=== PATIENT | female | born 1970 | race Caucasian/White ===

== ENCOUNTER 2019-12-12 00:32 | Day surgery (SDC) | payer OTHER, SELFPAY ==
[2019-12-07 13:07] VITALS: BMI 31.8
[2019-12-12 12:20] VITALS: BP 135/92; PULSE 104; RESP 20; TEMP 36.8; O2SAT 97; BMI 31.0
[2019-12-12] MEDS: LACTATED RINGERS 1,000 ML 150 ML IV CONT (12:47)
--- NOTE | 2019-12-12 12:58 | WPDANESEPPF ---
Anes - Initial Pre Proc Eval Procedure: Operation Date: 12/12/19 13:00 Proposed Procedures p Colonoscopy - Brandt Hernandez MD Date/Time: 12/12/19 12:58 Surgeon: Brandt Hernandez MD Pre Op Diagnosis: Diarrhea Patient Data Age: 49 Gender: F Height: 5 ft 4 in Weight: 82 kg Last Vital Signs Temp 98.2 F 12/12/19 12:20 Pulse 104 H 12/12/19 12:20 Resp 20 12/12/19 12:20 BP 135/92 H 12/12/19 12:20 Pulse Ox 97 12/12/19 12:20 Allergies Allergy/AdvReac Type Severity Reaction Status Date / Time iodine Allergy Severe Hives Verified 12/12/19 12:33 amoxicillin Allergy Unknown Nausea Verified 12/12/19 12:33 atorvastatin Allergy Unknown myalgias Verified 12/12/19 12:33 codeine Allergy Unknown Unknown Verified 12/12/19 12:33 erythromycin base Allergy Unknown Unknown Verified 12/12/19 12:33 fentanyl Allergy Unknown Unknown Verified 12/12/19 12:33 hydrocodone Allergy Unknown Unknown Verified 12/12/19 12:33 ketorolac Allergy Unknown Unknown Verified 12/12/19 12:33 Macrolide Antibiotics Allergy Unknown Unknown Verified 12/12/19 12:33 meperidine Allergy Unknown Unknown Verified 12/12/19 12:33 morphine Allergy Unknown Unknown Verified 12/12/19 12:33 oxycodone Allergy Unknown Hives Verified 12/12/19 12:33 Sulfa (Sulfonamide Allergy Unknown Unknown Verified 12/12/19 12:33 Antibiotics) tramadol Allergy Unknown Skin Verified 12/12/19 12:33 Reaction Home Medications Medication Instructions Recorded Confirmed Type albuterol sulfate 90 mcg/actuation 2 inhalation INHALATION Q4-6H gm 08/23/19 12/07/19 History aerosol inhaler aspirin 81 mg tablet,delayed 81 mg PO DAILY 08/23/19 12/12/19 History release fexofenadine-pseudoephedrine ER 1 tablet PO DAILY 08/23/19 12/07/19 History 180 mg-240 mg tablet,ext.release 24 hr fluticasone propionate 50 1 spray NASAL BID 08/23/19 12/12/19 History mcg/actuation nasal spray,suspension ibuprofen 800 mg tablet 800 mg PO TID 08/23/19 12/07/19 History levothyroxine 88 mcg tablet 88 mcg PO DAILY 08/23/19 12/12/19 History mometasone-formoterol HFA 200 2 puff INHALATION BID 08/23/19 12/12/19 History mcg-5 mcg/actuation aerosol inhaler montelukast 10 mg tablet 10 mg PO DAILY 08/23/19 12/12/19 History multivitamin 1 cap PO DAILY 08/23/19 12/12/19 History sumatriptan succinate 100 mg tablet 100 mg PO ONCE PRN 08/23/19 12/07/19 History tramadol 100 mg capsule 50 mg PO PRN PRN 08/23/19 12/12/19 History 24h,extended release(25-75) umeclidinium 62.5 mcg/actuation 1 inhalation INHALATION BID each 08/23/19 12/07/19 History blister powder for inhalation diltiazem HCl 240 mg 240 mg PO DAILY #30 cap 10/06/19 12/12/19 Rx capsule,extended release 24 hr fluticasone 100 mcg-salmeterol 50 1 puff INHALATION DAILY 10/17/19 12/07/19 History mcg/dose blistr powdr for inhalation conjugated estrogens 0.3 mg tablet 0.3 mg PO DAILY #90 tablet 10/24/19 12/07/19 Rx triamterene 37.5 1 cap PO DAILY #90 cap 12/05/19 12/12/19 Rx mg-hydrochlorothiazide 25 mg capsule cetirizine [Zyrtec] 10 mg PO DAILY 12/07/19 12/12/19 History omega-3 fatty acids [Fish Oil 1,000 mg PO BID 12/07/19 12/07/19 History Concentrate] omeprazole 40 mg PO DAILY 12/07/19 12/12/19 History mometasone-formoterol [Dulera] 2 puff INHALATION Q12H 12/12/19 12/12/19 History Patient hx anesthesia problems: none Family hx anesthesia problems: none PMFSH Past Medical History Medical History (Updated 12/12/19 @ 12:58 by Francisco Lechuga MD) Angioedema Benign essential HTN C. difficile colitis (~02/2019) CVID (common variable immunodeficiency) Diarrhea History of insect sting allergy Hypothyroid Multiple nasal polyps Severe persistent asthma, uncomplicated Vocal cord dysfunction Surgical History Surgical History (Updated 11/06/19 @ 13:27 by Brandt Hernandez MD) History of cholecystectomy Social History Social History (Reviewed 10/17/19 @ 10:32 b
--- NOTE | 2019-12-12 13:59 | PM.HPGS ---
History of Present Illness History of Present Illness Consent: Risks, benefits, and alternatives have been discussed and questions answered. Patient agrees to proceed with procedure. Chief complaint: Diarrhea Narrative: María Elena Bejarano is a 49 year old female here for chronic diarrhea. Review of Systems Constitutional: Constitutional: Denies headache(s) and Denies weakness Eyes: Eyes: Denies blurry vision ENT: Reports Normal hearing present, Denies headache(s) and Denies neck pain Cardiovascular: Cardiovascular: Denies chest pain and Denies dyspnea Respiratory: Respiratory: Denies dyspnea Gastrointestinal: Gastrointestinal: Reports no additional gastrointestinal complaints Genitourinary: Genitourinary: Denies dysuria Musculoskeletal: Musculoskeletal: Denies neck pain Integumentary/Breasts: Skin/Breast: Denies dry skin Neurologic: Reports Normal hearing present, Denies headache(s) and Denies weakness Psychiatric: Psychiatric: Denies anxiety Endocrine: Endocrine: Denies change in body appearance Hematologic/Lymphatic: Hematologic/Lymphatic: Denies easy bleeding Allergic/Immunologic: Allergic/Immunologic: Denies urticaria PMF Past Medical History Medical History (Updated 12/12/19 @ 14:00 by Brandt Hernandez MD) Angioedema Benign essential HTN C. difficile colitis (~02/2019) CVID (common variable immunodeficiency) Diarrhea History of insect sting allergy Hypothyroid Multiple nasal polyps Severe persistent asthma, uncomplicated Vocal cord dysfunction Surgical History Surgical History (Updated 11/06/19 @ 13:27 by Brandt Hernandez MD) History of cholecystectomy Social History Social History Smoking status: Never smoker Alcohol intake: current Meds Home Medications and Allergies Home Medications Medication Instructions Recorded Confirmed Type albuterol sulfate 90 mcg/actuation 2 inhalation INHALATION Q4-6H gm 08/23/19 12/07/19 History aerosol inhaler aspirin 81 mg tablet,delayed 81 mg PO DAILY 08/23/19 12/12/19 History release fexofenadine-pseudoephedrine ER 1 tablet PO DAILY 08/23/19 12/07/19 History 180 mg-240 mg tablet,ext.release 24 hr fluticasone propionate 50 1 spray NASAL BID 08/23/19 12/12/19 History mcg/actuation nasal spray,suspension ibuprofen 800 mg tablet 800 mg PO TID 08/23/19 12/07/19 History levothyroxine 88 mcg tablet 88 mcg PO DAILY 08/23/19 12/12/19 History mometasone-formoterol HFA 200 2 puff INHALATION BID 08/23/19 12/12/19 History mcg-5 mcg/actuation aerosol inhaler montelukast 10 mg tablet 10 mg PO DAILY 08/23/19 12/12/19 History multivitamin 1 cap PO DAILY 08/23/19 12/12/19 History sumatriptan succinate 100 mg tablet 100 mg PO ONCE PRN 08/23/19 12/07/19 History tramadol 100 mg capsule 50 mg PO PRN PRN 08/23/19 12/12/19 History 24h,extended release(25-75) umeclidinium 62.5 mcg/actuation 1 inhalation INHALATION BID each 08/23/19 12/07/19 History blister powder for inhalation diltiazem HCl 240 mg 240 mg PO DAILY #30 cap 10/06/19 12/12/19 Rx capsule,extended release 24 hr fluticasone 100 mcg-salmeterol 50 1 puff INHALATION DAILY 10/17/19 12/07/19 History mcg/dose blistr powdr for inhalation conjugated estrogens 0.3 mg tablet 0.3 mg PO DAILY #90 tablet 10/24/19 12/07/19 Rx triamterene 37.5 1 cap PO DAILY #90 cap 12/05/19 12/12/19 Rx mg-hydrochlorothiazide 25 mg capsule cetirizine [Zyrtec] 10 mg PO DAILY 12/07/19 12/12/19 History omega-3 fatty acids [Fish Oil 1,000 mg PO BID 12/07/19 12/07/19 History Concentrate] omeprazole 40 mg PO DAILY 12/07/19 12/12/19 History mometasone-formoterol [Dulera] 2 puff INHALATION Q12H 12/12/19 12/12/19 History Allergies Allergy/AdvReac Type Severity Reaction Status Date / Time iodine Allergy Severe Hives Verified 12/12/19 12:33 amoxicillin Allergy Unknown Nausea Verified 12/12/19 12:33 atorvasta
[2019-12-12 14:17] VITALS: BP 111/78; PULSE 86; RESP 16; O2SAT 97
[2019-12-12 14:27] VITALS: BP 113/82; PULSE 88; RESP 16; O2SAT 98
[2019-12-12 14:32] VITALS: BP 123/74; PULSE 90; RESP 14; O2SAT 97
== END 2019-12-12 14:55 | disposition home or self-care (01) ==
PROVIDERS: PCP Family Medicine; Visit Provider Internal Medicine Gastroenterology
PROC: 0DJD8ZZ Inspection of Lower Intestinal Tract, Via Natural or Artificial Opening Endoscopic (ICD-10-PCS; CPT 45378; principal; 2019-12-12 13:00)
DX: R19.7 Diarrhea, unspecified (principal); K64.8 Other hemorrhoids; I10 Essential (primary) hypertension; D83.9 Common variable immunodeficiency, unspecified; E03.9 Hypothyroidism, unspecified; J45.50 Severe persistent asthma, uncomplicated; Z79.82 Long term (current) use of aspirin
CPT/HCPCS: 45380; 88305; J2704; J7120

== ENCOUNTER 2020-05-20 09:34 | Outpatient (CLI) | payer OTHER, SELFPAY ==
--- NOTE | 2020-05-27 10:30 | SLEEP_ITS ---
Home Sleep Test DATE OF STUDY: 05/20/2020 ORDERING PHYSICIAN: Tayla Tineo MD. REASON FOR THE STUDY: Hypersomnia. HISTORY: This patient is a 50-year-old female, 5 feet 4 inches tall, 170 pounds with a body mass index of 29.1. She sleeps poorly at night, very lightly, few hours, only occasionally bothered by snoring. She frequently awakens from sleep feeling short of breath, frequently awakens from sleep with heartburn, belching, or coughing. She never snores loudly enough that others complain about it. Her mother and daughters have similar problems. The patient has a difficult time falling asleep, she wakes up during the night, she wakes up earlier in the morning than she wants to wake and she has a difficult time waking up. She has excessive daytime sleepiness. She has tried melatonin and trazodone without help. She frequently has trouble sleeping if she has a cold. She does not awake at night gasping for breath. She frequently has breathing problems at night due to asthma. She rarely sweats excessively at night. She occasionally notices her heart pounding or beating irregularly at night, which is due to her mitral valve prolapse. She does not fall asleep during the day, does not fall asleep involuntarily or while driving. She does not experience loss of muscle tone with strong emotion. She does not have daytime difficulties due to excessive sleepiness. She is a medical office worker. She does not feel paralyzed on waking or falling asleep. She does not have vivid dreamlike scenes upon awakening or falling asleep and is not afraid to go to sleep. She rarely has nightmares. She occasionally remembers her dreams. She rarely has racing thoughts. She does not feel sad or depressed. She occasionally has anxiety and muscular tension. She does not notice parts of her body jerking. She does not kick at night or have crawly achy feelings in her legs at night. She is not awakened with leg pain during the night. She occasionally has morning jaw pain, frequently grinds her teeth during sleep, frequently is bothered by pain during the day, occasionally is awakened by pain at night, frequently wakes up feeling stiff in the morning with sore achy muscles and pain in her neck and spine. She has headaches, palpitations, bowel disturbances, nightmares, fatigue, insomnia, and takes antacids regularly. Normal bedtime is 10 p.m. to 11 p.m., falling asleep sometimes quickly and sometimes taking longer. She typically awakens at night twice and will use the bathroom. She will try to go back to sleep, but this is not always easy. She awakens between 5 and 7 a.m. Weekend schedule is about the same. She does not take naps in the evening or afternoon. Most of the time she feels adequate in the morning, but she is not always refreshed. She feels better in the afternoons than the mornings. MEDICAL COMORBIDITIES: Allergic asthma, lung nodules, common variable immune deficiency, hypothyroidism, gastroesophageal reflux disease, hypertension, on diltiazem and losartan. MEDICATIONS: 1. Albuterol rescue inhaler q.4 hours p.r.n. shortness of breath. 2. Aspirin 81 mg a day. 3. Conjugated estrogen 0.3 mg daily. 4. Fexofenadine/pseudoephedrine ER 180 mg/240 mg 1 daily. 5. Fluticasone 50 mcg 1 spray each nostril b.i.d. 6. Ibuprofen 800 mg t.i.d. 7. Levothyroxine 88 mcg daily. 8. Methocarbamol 500 mg 3 times a day. 9. Mometasone/formoterol 200/5 mcg, 2 puffs twice a day. 10. Montelukast 10 mg a day. 11. Multivitamin 1 capsule daily. 12. Omeprazole 40 mg a day. 13. Ranitidine 300 mg daily. 14. Sumatriptan succinate 100 mg once daily as needed. 15. Tramadol 100 mg daily extended release. 16. Umeclidinium 62.5 mcg 1 puff daily. 17. Triamterene/hydrochlorothiazide 37.5/25 mg, 1 caps
== END 2020-05-20 09:35 | disposition home or self-care (01) ==
LOC: ANHCSM 09:40
PROVIDERS: PCP Family Medicine; Visit Provider Internal Medicine Critical Care Medicine
DX: G47.10 Hypersomnia, unspecified (principal); G47.33 Obstructive sleep apnea (adult) (pediatric)
CPT/HCPCS: 95806

== ENCOUNTER 2020-07-27 10:53 | Outpatient (CLI) | payer OTHER, SELFPAY ==
--- NOTE | ~2020-07-27 | CT_ITS ---
EXAMINATION: CT abdomen w con DATE: 07/27/2020 11:54 INDICATION: Celiac artery aneurysm. Lung nodule. TECHNIQUE: Computed tomography (CT) of the abdomen and pelvis was performed with 100 cc Omnipaque 350 intravenous contrast. Automated exposure control and iterative reconstruction technique were employe d. Exam dose: 289.58 mGy-cm total exam DLP. COMPARISON: 02/16/2019 CT abdomen pelvis FINDINGS: There is a calcified pulmonary granuloma in the anterior basal segment of the left lower lo be. The lung bases are clear of infiltrate or consolidation. Normal heart size. No pericardial or pleural effusion. No hepatic, splenic, pancreatic, adrenal space-occupying mass lesion. Occasional small renal cysts. T he kidneys otherwise are unremarkable. No apparent renal calculus or hydronephrosis. Normal caliber of the abdominal aorta. 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 No intraperitoneal or retroperitoneal mass lesion or adenopathy or ascites. No evidence of geoff l obstruction. No intraperitoneal free air. Small fat-containing umbilical hernia. IMPRESSION: No significant change since 02/16/2019 Reviewed, dictated and finalized at [facility]. Reviewed, dictated and finalized at [facility].
--- NOTE | ~2020-07-27 | CT_ITS ---
EXAMINATION: CT chest wo con DATE: 07/27/2020 11:54 INDICATION: Shortness of breath. Left upper quadrant pain for 2 years. TECHNIQUE: Computed tomography (CT) of the chest was performed without intravenous contrast. Automate d exposure control and iterative reconstruction technique were employed. Exam dose: 187.35 mGy-cm to sue exam DLP. COMPARISON: 05/19/2019 CT chest FINDINGS: Previously reported 5 mm left upper lobe nodule is diminished in size since 05/29/2019, cons istent with benign process. Stable 5 mm peripheral left lower lobe nodule (series 4 image 48) since 05/29/2019 Anterior basilar segment left lower lobe calcified pulmonary granuloma. No pulmonary infiltrate or consolidation or interval pulmonary mass lesion is noted. No hilar or mediastinal mass lesion or lymphadenopathy. Trace pericardial fluid. Heart size is within normal range. Status post cholecystectomy. Included skeletal structures are unremarkable. IMPRESSION: No significant change since 05/22/2019; stable or diminished size of left pulmonary nodul es, consistent with benign process Reviewed, dictated and finalized at [facility]. Reviewed, dictated and finalized at [facility]. IMPRESSION: No significant change since 05/22/2019; stable or diminished size o f left pulmonary nodules, consistent with benign process
== END 2020-07-27 10:54 | disposition home or self-care (01) ==
PROVIDERS: PCP Family Medicine; Referring Provider Internal Medicine Cardiovascular Disease; Visit Provider Nurse Practitioner Family
DX: J98.4 Other disorders of lung (principal); I72.8 Aneurysm of other specified arteries
CPT/HCPCS: 71250; 74160; Q9967

== ENCOUNTER 2020-10-21 08:19 | Outpatient (CLI) | payer OTHER, SELFPAY ==
--- NOTE | ~2020-10-21 | MM_ITS ---
EXAMINATION: MM screening galileo BI w alfred HISTORY: Screening TECHNIQUE: Craniocaudal and mediolateral oblique 3-D tomosynthesis images were obtained and synthetic 2-D images were generated. CAD analysis was submitted and interpreted. COMPARISON: Comparison to multiple prior studies sequentially, with oldest reviewed study dated 12/31. BREAST PARENCHYMAL COMPOSITION: There are scattered areas of fibroglandular density. FINDINGS: There is developing asymmetry in the upper outer quadrant of the right breast. The left figueroa ast is stable without evidence for malignancy. IMPRESSION: 1. Developing right breast asymmetry. 2. Additional mammographic views and possible breast ultrasound are recommended. BI-RADS Category 0: Incomplete: Needs additional imaging evaluation. Reviewed, dictated and finalized at [facility]. N RESOURCE ANALYST IMPRESSION: 1. Developing right breast asymmetry. 2. Additional mammographic views and possible breast ultrasound are recommended . BI-RADS Category 0: Incomplete: Needs additional imaging evaluation.
== END 2020-10-21 08:20 | disposition home or self-care (01) ==
LOC: ANHIMG 08:22
PROVIDERS: PCP Family Medicine; Visit Provider Family Medicine
DX: Z12.31 Encounter for screening mammogram for malignant neoplasm of breast (principal); R92.8 Other abnormal and inconclusive findings on diagnostic imaging of breast
CPT/HCPCS: 77063; 77067

== ENCOUNTER 2020-11-15 12:50 | Outpatient (CLI) | payer OTHER, SELFPAY ==
--- NOTE | ~2020-11-15 | MMUS_ITS ---
EXAMINATION: MM diagnostic galileo RT w alfred, US breast RT limited HISTORY: Focal asymmetry of the right breast on screening mammogram TECHNIQUE: Additional 3-D tomosynthesis images of the right breast were performed and synthetic 2-D i mages were generated. CAD analysis was submitted and interpreted. High resolution limited right breas t ultrasound was performed. COMPARISON: 10/21/2020, 10/06/2019, 05/25/2019, 02/21/2015 FINDINGS: MAMMOGRAPHIC FINDINGS: Focal asymmetry in the upper outer quadrant of the posterior third of the right breast at the 11:00 l ocation has an appearance similar to prior mammograms with spot compression. There is no suspicious m ass, calcification, or architectural distortion. ULTRASOUND: There is no evidence of focal abnormal solid or cystic lesion in the vicinity of the mammographic fin ding in question. IMPRESSION: 1. No mammographic or sonographic evidence of malignancy. 2. Recommend routine screening mammography in one year. BI-RADS Category 2: Benign finding(s). Reviewed, dictated and finalized at [facility]. AGE BATTERY INSPECTOR IMPRESSION: 1. No mammographic or sonographic evidence of malignancy. 2. Recommend routine screening mammography in one year. BI-RADS Category 2: Benign finding(s).
== END 2020-11-15 12:51 | disposition home or self-care (01) ==
LOC: ANHIMG 12:51
PROVIDERS: PCP Family Medicine; Visit Provider Family Medicine
DX: R92.8 Other abnormal and inconclusive findings on diagnostic imaging of breast (principal)
CPT/HCPCS: 76642; 77061; 77065; G0279

== ENCOUNTER 2020-11-16 11:32 | Outpatient (CLI) | payer OTHER, SELFPAY ==
--- NOTE | ~2020-11-16 | CT_ITS ---
EXAMINATION: CT abdomen pelvis wo/w con DATE: 11/16/2020 12:59 INDICATION: Hematuria. Left-sided abdominal pain. History of abdominal aortic aneurysm. TECHNIQUE: Computed tomography (CT) of the abdomen and pelvis was performed without and with 130 cc O mnipaque 350 intravenous contrast. The dose-length product was 1447.69 mGy-cm. Automated exposure con trol and iterative reconstruction technique were employed. COMPARISON: CT dated 07/27/2020. FINDINGS: There is a 5 mm groundglass nodule left lower lobe, incompletely visualized. Heart size nor mal. Trace pericardial effusion. No pleural effusion. There are cholecystectomy clips. The liver, pancreas, adrenal glands and left kidney are unremarkable. There are calcified granulomas in the spleen. There are subcentimeter hypodensities of the right kidney, most likely benign cysts. U reters normal in course and caliber. Bladder is unremarkable. No abnormal pelvic masses or fluid mohan ections. No free air or free fluid. Nonobstructive bowel gas pattern. Small fat-containing umbilical hernia. No acute osseous abnormality. IMPRESSION: 1. No acute abdominal abnormality. 2: Left lower lobe groundglass nodule measuring 5 mm. Follow-up low dose CT chest in 12 months recomm ended. Reviewed, dictated and finalized at [facility]. ENTICE COOK IMPRESSION: 1. No acute abdominal abnormality. 2: Left lower lobe groundglass nodule measuring 5 mm. Follow-up low dose CT [address] [address] in 12 months recommended.
[2020-11-16 12:34] LABS: Estimated Glomerular Filt Rate 59
== END 2020-11-16 11:33 | disposition home or self-care (01) ==
PROVIDERS: PCP Family Medicine; Visit Provider Physician Assistant Medical
DX: R10.12 Left upper quadrant pain (principal); R31.9 Hematuria, unspecified
CPT/HCPCS: 74178; Q9967